=== PATIENT | male | born 1975 | race Caucasian/White ===

== ENCOUNTER → 2016-04-30 | Outpatient (CLI) | payer OTHER ==
[~2016-04-30] MED LIST: HYDR-3983 PO
--- NOTE | 2016-04-30 13:22 | DIAGNOSTIC IMAGING REPORT ---
BONE SCAN 3 PHASE LIMITED HISTORY: LEFT ELBOW PAIN TECHNIQUE: Immediately and 3 hours following intravenous administration of 26.3 mCi of technetium 99 M MDP, 3 phase bone scan of the left elbow was performed. COMPARISON STUDY: Left elbow 10/03/2015. FINDINGS: No abnormal radiotracer uptake seen within the left elbow on the blood flow sequences. Minimal radiotracer uptake on the blood pool sequences may be within the range normal limits. Moderately intense radiotracer uptake at the left olecranon on the delayed sequences. IMPRESSION: Moderately intense radiotracer uptake at the left olecranon on the delayed sequences . This is nonspecific but could be related to healing given the prior fracture. An acute fracture would be considered less likely given the pattern of radiotracer uptake but not entirely excluded. Comparison to recent plain film is recommended for confirmation Electronically signed by: Bladimir Pineda M.D. 04/30/2016 1:21 PM Dictated Date/Time: 04/30/2016 1:16 PM
== END | disposition home or self-care (01) ==
LOC: C.NUCL 08:35
PROVIDERS: ATTEND Orthopaedic Surgery
DX: M25.522 Pain in left elbow (principal); R93.7 Abnormal findings on diagnostic imaging of other parts of musculoskeletal system